=== PATIENT | female | born 1970 | race Caucasian/White ===

== ENCOUNTER → 2024-06-30 | Outpatient (CLI) | payer OTHER ==
[~2024-06-30] MED LIST: AMOXICILLIN/CLA1 TA1 PO; BIOTIN800 MCG PO; COLLAGEN 15001 EACH; CURCUMIN95%; Iohexol 300 - 100 ML VIAL IV ONE; MULTI VITAMINS1 TAB PO; NS 100 ML IV SCH; PROBIOTIC BLEN1 EACH PO
== END ==
LOC: COL.RAD 14:30
DX: J18.1 Lobar pneumonia, unspecified organism (principal); R59.0 Localized enlarged lymph nodes
CPT/HCPCS: Q9967

== ENCOUNTER → 2024-07-06 | Outpatient (CLI) | payer OTHER ==
[~2024-07-06] VITALS: Ht 170.2 cm; Wt 83.3 kg
[~2024-07-06] MED LIST changes: -Iohexol 300 - 100 ML VIAL IV ONE; -NS 100 ML IV SCH
[2024-07-06 09:21] VITALS: BP 129/76; PULSE 88; TEMP 99.2
[2024-07-06 10:30] VITALS: BP 134/83; PULSE 87
== END ==
LOC: COL.RAD 08:49
DX: J90 Pleural effusion, not elsewhere classified (principal)
CPT/HCPCS: 19804